=== PATIENT | male | born 1975 | race Caucasian/White ===

== ENCOUNTER → 2018-02-02 11:10 | Outpatient (CLI) | payer BC, SELFPAY ==
--- NOTE | 2018-02-02 11:19 | XR_ITS ---
XR knee LT 4V HISTORY: Recent trauma not mentioned in history ITS.REASON: ACUTE LT KNEE PAIN ORDERING PHYSICIAN: IRVING Shepard PATIENT AGE: 42 years COMPARISON: None FINDINGS: No fracture or dislocation. No lytic or blastic change. Normal mineralization. No significant arthritic changes evident. There is diffuse soft tissue swelling over the patella and in the infrapatellar region. This likely is due to combination of diffuse contusion and/or fluid within the prepatellar bursa. There is no definite fluid within the suprapatellar bursa. There are no foreign bodies seen. There is mild focal cortical irregularity of the medial femoral condyle which appears to represent a small osteophyte and/or possibly osteochondroma. IMPRESSION: Prominent soft tissue swelling over the patella, no fracture seen
== END ==
PROVIDERS: PCP Family Medicine; Visit Provider Physician Assistant
DX: M25.562 Pain in left knee (principal)
CPT/HCPCS: 73564

== ENCOUNTER → 2018-10-28 14:06 | Outpatient (CLI) | payer BC, SELFPAY ==
--- NOTE | 2018-10-28 14:14 | CA_ITS ---
APPROVED REPORT EXAM: Comprehensive 2D, Doppler, and color-flow Echocardiogram Bead Picker: Daja Reyes RDCS Ht: 6 ft 2 in Wt: 210lbs BSA: 2.22 BP: 158/98 mmHg Indications: Murmur 2D Dimensions LVOT 2.30 cm (M/F) 1.5-2.5 M-Mode Dimensions RVDd 3.30 cm (0.9-2.6) LA Diam 3.60 cm (1.9-4.0) LVDd 5.70 cm (3.5-5.7) Ao Diam 3.80 cm (2.0-3.7) LVDs 4.60 cm (3.5-5.7) AV Cusp 2.30 cm (1.5-2.6) IVSd 0.90 cm (0.6-1.1) PWd 0.90 cm (0.6-1.1) EF (Teich) 39.20% FS 19.30% EDV (Teich) 160.00 mL ESV (Teich) 97.30 mL LV Diastology E/A Ratio 1.1 MED E' 9.46 (< 7 cm/sec) E'/MED E' Ratio 7.60 (>14) LAT E' 9.85 (<10 cm/sec) E/LAT E' Ratio 7.30 (>14) Mitral Valve MV E Max Fernie. 72.10 (40-130 cm/s) MV A Velocity 63.70 (40-130 cm/s) E/A Ratio 1.10 Tricuspid Valve TR P. Velocity 256.00 cm/s RAP Estimate 10.00 mmHg RVSP 36.00 mmHg Left Ventricle Left atrium is normal size, left ventricle is normal size, there is no concentric left ventricular hypertrophy, visually estimated ejection fraction 55% with no regional wall motion abnormality. Ejection fraction 55% with no regional wall motion abnormality. Right Ventricle Right atrium and right ventricular mildly enlarged with normal contractility. Aortic Valve Aortic valve is grossly normal. There is no aortic stenosis or aortic insufficiency. Mitral Valve Mitral valve is grossly normal, there is mild mitral regurgitation. Tricuspid Valve Cuspid valve is grossly normal, there is mild tricuspid regurgitation, tricuspid regurgitation jet velocity is inadequate for calculation of the right ventricular systolic pressure. Pulmonic Valve Pulmonic valve is poorly visualized. Great Vessels Aortic root is normal size. Pericardium No significant pericardial effusion noted. Conclusion 1. Normal left ventricular size, preserved left ventricular systolic function, visually estimated ejection fraction 55% with no regional wall motion abnormality, diastolic parameters are within normal range. 2. Mildly enlarged right ventricle with normal contractility. 3. Mild mitral and tricuspid regurgitation 4. No significant pericardial effusion noted. Electronically signed by : Jatin Lujan, 10/28/2018 14:44:28
== END ==
PROVIDERS: PCP Family Medicine; Visit Provider Family Medicine
DX: R01.1 Cardiac murmur, unspecified (principal)
CPT/HCPCS: 93306

== ENCOUNTER 2024-12-11 07:30 | Day surgery (SDC) | payer BC, SELFPAY ==
--- NOTE | 2024-12-07 07:13 | EXP.HP ---
History of Present Illness *Admission Date: 12/11/24 *History of present illness: Mr. Beth is a 49-year-old gentleman who is here for initial screening colonoscopy. The examination is deemed medically necessary for screening colonoscopy. The patient has been seen, interviewed and examined prior to the procedure by both myself and the anesthesia provider. [facility] Disclaimer: The information contained in this section may have been updated after the patient was seen, as this information can be updated by other users. Medical History (Updated 12/11/24 @ 07:47 by Brian Ruth) No significant past medical history Social History Smoking Status: Never smoker alcohol intake: never substance use type: denies use current occupational status: employed Travel in the last 8 weeks?: Inside the [place] Review of Systems Review of Systems Review of systems (narrative): Negative *Cardiovascular Comments: Negative *Gastrointestinal Comments: Negative *Genitourinary Comments: Negative *Musculoskeletal Comments: Negative *Neurologic Comments: Negative Meds Home Medications and Allergies Home Medications ?Medication ?Instructions ?Recorded ?Confirmed ?Type No Known Home Medications 02/10/18 12/11/24 History New Prescriptions to Start Prescriptions: Allergies Allergy/AdvReac Type Severity Reaction Status Date / Time No Known Allergies Allergy Verified 02/10/18 09:18 Exam *Routine HEENT Exam Head: Present normocephalic Eye: Present EOMI and PERRL ENT: Present mucous membranes moist *Routine Neck Exam Neck: Present supple *Routine Respiratory Exam Respiratory: Present CTA bilaterally *Routine Cardiovascular Exam Cardiovascular: Present RRR *Routine Abdominal Exam Abdominal: Present soft and normoactive bowel sounds; Absent tenderness *Routine Rectal Exam Rectal:: deferred *Routine Genitalia Exam Genitalia:: deferred *Routine Extremities Exam Extremities: Absent cyanosis, clubbing or edema *Routine Skin Exam Skin: Present warm; Absent rash *Routine Neurological Exam Neurological: Present alert and oriented X3 Assessment and Plan *Assessment and plan (1) Screening for colon cancer: Status: Acute Category: Medical Code(s): Z12.11 - Encounter for screening for malignant neoplasm of colon Plan A/P: 1. Screening for colon cancer is the preprocedural diagnosis. The patient will be anesthetized/sedated using MAC sedation. The patient has been seen and examined. Cardiac and lung assessment prior to the examination is stable. Proceed with planned screening colonoscopy.
[2024-12-08 14:20] VITALS: BMI 26.4
--- NOTE | 2024-12-11 06:59 | HMH.PROCNOTE ---
[facility] Procedure Note Date: 12/11/24 Time: 08:57 Procedure Note:: Colonoscopy Procedure Report: Colonoscopy with cold snare polypectomy Endoscopist: Jeremy Garcia II, MD Referring physician: Brian King MD Date of Procedure: December 11, 2024 Equipment: Olympus [id number] adult colonoscope Sedation: MAC sedation Indication: Mr. Beth is a 49-year-old gentleman who is here for initial screening colonoscopy. The patient reports no abdominal pain, weight loss, rectal bleeding or family history of colon cancer. Over the last year, he has had some intermittent loose stools. He reports no gassiness or bloating. The examination is deemed medically necessary for screening colonoscopy. Procedure: Prior to the procedure, a history and physical exam was performed, and patient's medications and allergies were reviewed. The risks, benefits and alternatives of the sedation and procedure were discussed with the patient. All questions were answered and informed consent was obtained. The patient was brought to the procedure room. Patient identification and proposed procedure were verified by the physician and the nurse. The patient was placed in a left lateral decubitus position and the scope was passed under direct vision. Throughout the procedure, the patient's blood pressure, pulse, and oxygen saturations were monitored continuously. The colonoscopy was accomplished without difficulty. The patient tolerated the procedure well. Findings: On digital rectal examination there was normal rectal tone. There were no external hemorrhoids. The prostate was 2+, smooth, soft, symmetric without nodules. The colonoscope was introduced through the anal canal to the rectum and advanced to the cecum. The ileocecal valve and appendiceal orifice were identified. The scope was advanced a short distance into the ileum which appeared grossly normal. The scope was then withdrawn into the colon. There were 2 polyps (descending x 1 (2 to 3 mm) and sigmoid x 1 (11 mm)). Both of these were removed via cold snare polypectomy. The remaining cecum, ascending, transverse, descending, sigmoid and rectum were grossly normal. There were no other mucosal abnormalities identified. Upon retroflexion within the rectum there were grade 1-2 internal hemorrhoids. The preparation was excellent throughout with [place] Preparation Score of 9. The cecal time was 14 minutes. Impression: 1. Sigmoid polyp (11 mm) 2. Descending polyp (2 to 3 mm) 3. Grade 1-2 internal hemorrhoids Plan: I will follow-up the polyp histology and recommend repeat screening/surveillance colonoscopy again in 5 years. I would recommend bulking fiber supplementation.
[2024-12-11 07:48] VITALS: BP 149/94; PULSE 69; RESP 16; TEMP 36.6; O2SAT 98
[2024-12-11] MEDS: LACTATED RINGERS 1000ML 1,000 ML 50 ML IV (07:52)
--- NOTE | 2024-12-11 08:36 | EXP.ANES.CKL ---
[facility] Disclaimer: The information contained in this section may have been updated after the patient was seen, as this information can be updated by other users. Medical History No significant past medical history Social History Smoking Status: Never smoker alcohol intake: never substance use type: denies use current occupational status: employed Travel in the last 8 weeks?: None [facility] Anesthesia Checklist Patient Identification Patient Identification: Arm Band and Verbal (Name & ) Structural Data Admitted From: Home Planned Operative Procedure/s: colonscopy Consent for Planned Operative Procedure(s) Verified: Yes Verified Documents: Surgical Consent and History and Physical NPO Status Verified Time NPO: 00:00 Additional verifications Anesthesia Reactions: No Previous Colonoscopy: No Airway Assessment Mallampati Score:: Class II Dentition: Good Dentition Neurological Assessment Level of Consciousness: Awake, Alert and Appropriate Hx Seizures: No Numbness or tingling in extremities: No Anesthesia Plan Anesthesia Risk discussed: Yes Anesthesia Plan: Verified ASA Class: I Anesthesia Type: MAC
[2024-12-11 09:00] VITALS: BP 113/73; PULSE 68; RESP 18; TEMP 36.3; O2SAT 95
[2024-12-11 09:10] VITALS: BP 123/79; PULSE 67; RESP 18; O2SAT 96
[2024-12-11 09:20] VITALS: BP 114/77; PULSE 57; RESP 18; O2SAT 98
[2024-12-11 09:30] VITALS: BP 118/70; PULSE 68; RESP 18; O2SAT 98
== END 2024-12-11 09:41 | disposition home or self-care (01) ==
PROVIDERS: PCP Family Medicine; Visit Provider Internal Medicine Gastroenterology
PROC: 0DJD8ZZ Inspection of Lower Intestinal Tract, Via Natural or Artificial Opening Endoscopic (ICD-10-PCS; CPT 45378; principal; 2024-12-11 09:00)
DX: Z12.11 Encounter for screening for malignant neoplasm of colon (principal); D12.4 Benign neoplasm of descending colon; D12.5 Benign neoplasm of sigmoid colon; K64.0 First degree hemorrhoids; K64.1 Second degree hemorrhoids
CPT/HCPCS: 45385; J2003; J2704; J7120